=== PATIENT | female | born 1990 | race Caucasian/White ===

== ENCOUNTER 2022-01-01 09:40 | Emergency (ER) | payer OTHER, SELFPAY ==
--- NOTE | ~2022-01-01 | XR_ITS ---
EXAMINATION: XR HAND, LEFT CLINICAL INFORMATION: Trauma, pain COMPARISON: None TECHNIQUE: Left hand is imaged in 4 views. FINDINGS: There is an avulsion fracture involving the palmar base 5th finger middle phalanx. Fracture likely extends to the palmar side articular surface. Mild surrounding soft tissue swelling. No dislocation or destructive process. The remainder the bony structures appear intact. No joint narrowing or erosive change. There is a negative ulnar variance and mild posttraumatic cortical deformity distal radial shaft likely related to an occult healed injury. XR/XR hand LT 2V IMPRESSION: 1. Avulsion fracture palmar base 5th finger middle phalanx. No dislocation or destructive process. 2. Negative ulnar variance. Old posttraumatic deformity distal radial shaft.
[2022-01-01 09:51] VITALS: BP 149/83; PULSE 100; RESP 19; TEMP 36.6; O2SAT 98; BMI 34.3
--- NOTE | 2022-01-01 10:58 | ED.EXTPRO ---
HPI - Extremity Problem General Chief complaint: Extremity Injury, Upper Stated complaint: L hand inj/work inj Time Seen by Provider: 01/01/22 10:25 Source: patient Mode of arrival: ambulatory Limitations: no limitations History of Present Illness HPI Narrative: Patient is a 31-year-old female, left-hand dominant, presents emergency department today for evaluation of left hand pain. Onset of pain was at work today after dropping a crate filled with milk onto the hand. Pain is predominantly to the 4th and 5th digit and corresponding metacarpals. Denies any numbness tingling or cold sensation to the hand. Is able to completely extend, pain with flexion though she is able to fully flex. Denies any prior injury to this hand. Related Data Allergies Allergy/AdvReac Type Severity Reaction Status Date / Time azithromycin [AZITHROMYCIN] Allergy Intermediate SWELLING Unverified 11/05/19 17:11 bee pollen [BEE STINGS] Allergy Unknown THROAT Unverified 11/05/19 17:11 SWELLS coconut Allergy Unknown UNKNOWN Unverified 11/05/19 17:11 doxycycline [Doxycycline] Allergy Unknown RASH Unverified 11/05/19 17:11 VOMITING erythromycin base Allergy Unknown SWELLING Unverified 11/05/19 17:11 [ERYTHROMYCIN BASE] lactose [Lactose] AdvReac Mild ABDOMENAL Unverified 11/05/19 17:11 DISCOMFORT, DIARRHEA DUST Allergy Unknown UNKNOWN Uncoded 11/05/19 17:11 From SOLU-MEDROL Allergy Unknown GEN Uncoded 11/05/19 17:11 SWELLING; DIFF SWALLOWING; FLUSHING GRASS Allergy Unknown UNKNOWN Uncoded 11/05/19 17:11 Review of Systems Review of Systems: Musculoskeletal: Positive hand pain as noted in HPI Yes all other systems are reviewed and are negative PMFSH Past Medical History Attestation statement: The following information was validated with the patient. Source: old records reviewed Social History Social History Advance Directives: No Advance Directives Information Provided: No Physical Exam Vital Signs: Vital Signs: Last Vital Signs Temp 98 F 01/01/22 09:51 Pulse 100 01/01/22 09:51 Resp 19 01/01/22 09:51 BP 149/83 H 01/01/22 09:51 Pulse Ox 98 01/01/22 09:51 O2 Del Method 01/01/22 09:51 BMI result Body Mass Index 34.3 Appearance: Alert.?Oriented to person, place and time. No acute distress.?Normal affect.? Neck: Normal inspection.? Neck supple.?? CVS: Heart sounds normal. Normal heart rate and rhythm.? Pulses normal.?? Respiratory: No respiratory distress.? Lung sounds clear to auscultation bilaterally?? Abdomen: Soft and non-tender. Skin: Skin warm and dry.? Normal skin color.? Extremities: No lower extremity edema.? Left hand with mild localized swelling, no erythema or warmth. Bruising over the left 5th digit, dorsal and palmar aspect. Full extension is noted, near complete flexion is noted. Cap refill <3 seconds, no obvious deformity. Full range of motion to wrist. Neuro: Moves all extremities spontaneously. Sensation intact bilaterally. . No focal neuro deficits. Ambulates with normal steady gait. Course Course Course Narrative: Patient is a 31-year-old female who presents emergency department for traumatic left hand pain. She is left-hand dominant. On examination there is no obvious deformity, there is however bruising. Neurovascularly intact distally. XR reveals an avulsion fracture at the palmar base of the 5th finger middle phalanx with no dislocation or destructive process. Placed finger in splint, advised outpatient follow-up with Orthopedics within the next week, acetaminophen/ibuprofen as needed for pain, ice for 10-15 minutes 4-6 times daily. Reviewed worsening signs and symptoms to return back to emergency department for. Patient discharged home in stable condition. MDM - Extremity (Nontraumatic) Medical Records Attestation: I reviewed the patient's medical records. Imaging Data XR hand: Radiologist's impression: XR/XR hand LT 2V IMPRESSION: 1. Avulsion fracture palmar base 5th finger middle phalanx. No dislocation or destructive process. 2. Negative ulnar variance. Old posttraumatic deformity distal radial shaft. Discharge Plan Discharge Clinical Impression: Avulsion fracture of middle phalanx of finger Qualifiers: Encounter type: initial encounter Fracture type: closed Qualified Code(s): S62.629A - Displaced fracture of middle phalanx of unspecified finger, initial encounter for closed fracture Patient Disposition: Home, Self-Care Instructions: Finger Fracture (ED) Additional Instructions: You can take ibuprofen 200 mg, 3 tablets (600mg) every 6-8 hours as needed for pain, in addition to Tylenol 500 mg, 2 tablets (1,000mg) every 4-6 hours as needed for pain, but not to exceed 3 doses daily (3,000mg).? Contact Orthopedics to arrange for a follow-up visit within the next week. Return to emergency department any new or worsening symptoms or concerns. Referrals: Maryann Powell MD [Physician] - (Avulsion fracture left 5th middle phalanx) Stand Alone Forms: Work/School Release Interventions: ED Discharge Assessment Last Done: 01/01/22 13:09 Discharge Date/Time: 01/01/22 13:10
== END 2022-01-01 13:10 | disposition home or self-care (01) ==
PROVIDERS: Emergency Provider Emergency Medicine Emergency Medical Services; PCP Internal Medicine
DX: S62.657A Nondisplaced fracture of middle phalanx of left little finger, initial encounter for closed fracture (principal); W20.8XXA Other cause of strike by thrown, projected or falling object, initial encounter; Y93.89 Activity, other specified; Y92.010 Kitchen of single-family (private) house as the place of occurrence of the external cause; Y99.9 Unspecified external cause status
CPT/HCPCS: 29130; 73120; 99283

== ENCOUNTER 2022-01-09 | Outpatient (REF) | payer OTHER, SELFPAY ==
--- NOTE | ~2022-01-09 | XR_ITS ---
EXAMINATION: XR HAND, LEFT CLINICAL INFORMATION: Fracture COMPARISON: Previous exam 01/01/2022 TECHNIQUE: PA, lateral, and oblique views of the left hand. FINDINGS: There is a volar plate fracture of the middle phalanx of the fifth finger intra-articular with the PIP joint. No other acute fracture is seen. Joint spaces are otherwise normal. There is a soft tissue swelling adjacent to the fracture. XR/XR hand LT min 3V IMPRESSION: Volar plate fracture of the middle phalanx of the fifth finger intra-articular with the PIP joint.
== END 2022-01-09 00:01 | disposition home or self-care (01) ==
LOC: CF
PROVIDERS: Visit Provider Physician Assistant
DX: S62.621A Displaced fracture of middle phalanx of left index finger, initial encounter for closed fracture (principal)
CPT/HCPCS: 73130; 99202